=== PATIENT | female | born 2000 | race Two or more races ===

== ENCOUNTER 2024-11-13 15:25 | Emergency (ER) | payer MEDICAID, SELFPAY ==
[2024-11-13 15:44] VITALS: BP 153/88; PULSE 89; RESP 18; TEMP 37; O2SAT 99; BMI 44.4
--- NOTE | 2024-11-13 15:48 | PD.EDWOUND ---
ED Wound/Laceration-RME/HPI General Chief Complaint: Wound/Laceration Stated Complaint: Laceration to left 2nd digit with a knife Time Seen by Provider: 11/13/24 15:30 Arrival date/time: 11/13/24 15:25 RME / HPI RME / HPI narrative: DR. SAVANNAH BONDS ED EVALUATION: 24-year-old female presents after sustaining a laceration to the tip of her left second finger at approximately 12 PM today. She was opening a salad packet with a knife when the injury occurred. She is not on any blood thinners. No past medical history or known allergies. Related Data Previous Rx's ?Medication ?Instructions ?Recorded ibuprofen 800 mg tablet 800 mg PO TID PRN pain #30 tabs 05/07/18 Allergies Allergy/AdvReac Type Severity Reaction Status Date / Time No Known Allergies Allergy Verified 11/13/24 15:28 Review of Systems Review of Systems Systems Reviewed: All systems reviewed, normal except as documented Past Medical History Social History SMOKING STATUS: Never smoker SUBSTANCE USE: does not use ALCOHOL: Never ED Exam Narrative Physical exam: GENERAL APPEARANCE: alert and oriented x 4, well-developed, well-nourished, no acute distress VITALS: All vitals were reviewed and the pulse ox is 99% on room air, which is normal according to my interpretation. HEENT: Normocephalic, atraumatic; pupils equal, round, reactive to light; EOMI; mucous membranes pink, moist; oropharynx clear NECK: Supple LUNGS: CTABL; no wheezes, no rales, no rhonchi HEART: Regular rate, regular rhythm; normal S1, S2; no murmurs ABDOMEN: non distended; normal BS; soft, no tenderness, no guarding, no rebound; no masses, no organomegaly, no hernia BACK: no CVA tenderness EXTREMITIES: left second fingertip laceration measuring 0.75 cm noted; no edema NEUROLOGIC: awake; alert and oriented x4; cranial nerves II-XII grossly intact; no focal sensory or motor deficits PSYCHIATRIC: appropriate mood and affect SKIN: warm, dry, normal color; no rashes Course Quality Measures none Vital Signs Vital signs: Vital Signs Temperature 98.6 F 11/13/24 15:44 Pulse Rate 89 11/13/24 15:44 Respiratory Rate 18 11/13/24 15:44 Blood Pressure 153/88 H 11/13/24 15:44 Pulse Oximetry (%) 99 11/13/24 15:44 Oxygen Delivery Method Room Air 11/13/24 15:44 PROCEDURES: Procedure Comment Procedure: Laceration repair of left second fingertip using Dermal Adhesive Indication: Acute traumatic laceration (see HPI) Anesthesia: Not required Technique: The left second fingertip laceration measuring 0.75 cm was cleaned thoroughly with sterile saline and inspected. No foreign body or tendon involvement noted. Wound edges were well approximated. A topical skin adhesive (dermal glue) was applied in thin layers over the laceration. Adequate sealing achieved. Tolerated Well: Yes, without complication Wound / Laceration MDM Narrative MDM Narrative:: IChelsie am scribing for and in the presence of Dr. Hare. Patient data External records reviewed:: [facility] previous records Clinical information provided by:: patient Social determinants that could affect healthcare access:: none Patient has the following chronic illnesses:: Denies any PMHx, surgeries, daily medications, or known allergies. How is presenting disease/condition affected by chronic disease/condition?: no chronic disease Evaluation data The following diagnostics were reviewed and interpreted by me:: other (specify) (none) Lab and/or radiology exams considered but not ordered:: none Interpretation Summary: n/a Medications / Prescriptions Medications or Prescriptions considered but not ordered:: none Medication administrations:: see above if any Consultations Consultation(s) initiated? (list below): No Diagnosis Wound Differential Diagnosis: other (Finger laceration, distal fingertip injury, and soft tissue trauma.) Most likely diagnosis given after review of the tests above:: Finger laceration Admission Indicated Admission indicated?: not indicated Admission Request Was there a request for admission?: No Disposition Plan Disposition Plan: Discharge Discharge Attestation Discharge Attestation: The patient and all family members were given an opportunity to ask questions and understood the discharge instructions. Discharge instructions specifically effects, indications for sooner follow up or return to the emergency department, and the expected course of current diagnosis. Patient condition: Stable Discharge Plan Plan Patient Disposition: HOME (Self Care) Prescriptions/Referrals Prescriptions/Med Rec: No Action ibuprofen 800 mg tablet 800 mg PO TID PRN (Reason: pain) Qty: 30 0RF Problem List Clinical Impression: Finger laceration Patient/Caregiver Discharge Instructions Education Materials: ED Laceration: Skin Adhesive Print Language: [place] Stand Alone Forms: [employer] Info., Patient Portal Info Letter
== END 2024-11-13 16:28 | disposition home or self-care (01) ==
LOC: SERX 16:14
PROVIDERS: Emergency Provider Emergency Medicine
DX: S61.211A Laceration without foreign body of left index finger without damage to nail, initial encounter (principal); W26.0XXA Contact with knife, initial encounter; Y93.89 Activity, other specified
CPT/HCPCS: 12001; 99283